=== PATIENT | female | born 1955 | race African-American/Black ===

== ENCOUNTER 2017-06-02 10:31 | Emergency (ER) | payer MEDICAID, OTHER ==
[~2017-06-02] VITALS: Ht 167.6 cm; Wt 79.5 kg
[2017-06-02 13:39] LABS: BASOPHILS % 0.7 % (0.0-2.0); EOSINOPHILS % 1.5 % (0.0-5.0); HEMATOCRIT. 35.3 % (36.0-48.0); HEMOGLOBIN. 11.8 g/dL (12.0-16.0); LYMPHOCYTES % 39.2 % (20.0-50.0); MEAN CORPUSCULAR HEMOGLOBIN 28.6 pg (28.0-32.0); MEAN CORPUSCULAR VOLUME 85.4 fL (81.0-99.0); MEAN PLATELET VOLUME 8.9 fl (7.4-10.4); MONOCYTES % 7.4 % (2.0-8.0); NEUTROPHILS % 51.2 % (40.0-76.0); PLATELET 185 x1000/uL (130-400); RED BLOOD CELL COUNT 4.13 mill/uL (4.2-5.4)
[2017-06-02 13:49] LABS: CHLORIDE 111 mEq/L (98-107)
[2017-06-02] MEDS ORDERED: POTASSIUM CHLORIDE 20MEQ TABLET SR PO ONE (14:30)
[2017-06-02 15:30] VITALS: BP 142/76
== END 2017-06-02 16:08 | disposition home or self-care (01) ==
LOC: ER 10:31
DX: G40.909 Epilepsy, unspecified, not intractable, without status epilepticus (principal); E11.9 Type 2 diabetes mellitus without complications; I10 Essential (primary) hypertension; Z98.890 Other specified postprocedural states
CPT/HCPCS: 36415; 70450; 80053; 85025; 99285; Z7610

== ENCOUNTER 2018-07-07 13:53 | Emergency (ER) | payer OTHER ==
[~2018-07-07] VITALS: Ht 167.6 cm; Wt 100.0 kg
[2018-07-07 15:01] LABS: BASOPHILS % 0.7 % (0.0-2.0); HEMATOCRIT. 34.2 % (36.0-48.0); LYMPHOCYTES % 27.8 % (20.0-50.0); MEAN CORPUSCULAR HEMOGLOBIN 28.1 pg (28.0-32.0); MEAN CORPUSCULAR VOLUME 87.1 fL (81.0-99.0); MEAN PLATELET VOLUME 8.4 fl (7.4-10.4); MONOCYTES % 6.2 % (2.0-8.0); NEUTROPHILS % 63.3 % (40.0-76.0); PLATELET 193 x1000/uL (130-400); RED BLOOD CELL COUNT 3.93 mill/uL (4.2-5.4); RED CELL DISTRIBUTION WIDTH 14.4 % (11.6-14.6)
[2018-07-07 15:08] LABS: CHLORIDE 112 mEq/L (98-107)
[2018-07-07 15:09] LABS: PROTHROMBIN TIME 10.2 sec (9.6-11.0)
[2018-07-07 15:37] LABS: CLARITY URINE CLOUDY (CLEAR); COLOR URINE YELLOW (YELLOW); KETONES URINE NEGATIVE (NEGATIVE); LEUKOCYTE ESTERASE URINE 2+ (NEGATIVE); NITRITE URINE POSITIVE (NEGATIVE); OCCULT BLOOD URINE NEGATIVE (NEGATIVE); PROTEIN URINE NEGATIVE (NEGATIVE); SPECIFIC GRAVITY URINE 1.018 (1.005-1.030); UROBILINOGEN URINE 0.2 E.U./dL (0.2-1.0)
[2018-07-07] MEDS ORDERED: CEFTRIAXONE 1 G PREMIX 50 ML IV NR (16:30)
[2018-07-07 18:27] VITALS: BP 152/86
== END 2018-07-07 18:33 | disposition home or self-care (01) ==
LOC: ER 14:14
DX: R56.9 Unspecified convulsions (principal); I10 Essential (primary) hypertension
CPT/HCPCS: 36415; 80053; 81003; 85025; 85610; 96365; 99283; J0696; Z7610

== ENCOUNTER 2020-07-31 19:14 | Inpatient (IN) | payer OTHER ==
[~2020-07-31] VITALS: Ht 167.6 cm; Wt 99.4 kg
[2020-07-31] MEDS ORDERED: DILTIAZEM HCL 5MG/ML 5ML VIAL IV ONE ×2 (19:30→19:45)
[2020-07-31] MEDS ORDERED: IPRATROPIUM BROMIDE (0.02%) 0.5MG/2.5ML NEB HHN ONE (19:30)
[2020-07-31] MEDS ORDERED: METHYLPREDNISOLONE SOD SUCC 125 MG/2 ML VIAL IV ONE (19:30)
[2020-07-31 19:49] LABS: BASOPHILS % 0.7 % (0.0-2.0); EOSINOPHILS % 2.4 % (0.0-5.0); HEMATOCRIT. 35.1 % (36.0-48.0); HEMOGLOBIN. 11.4 g/dL (12.0-16.0); LYMPHOCYTES % 40.6 % (20.0-50.0); MEAN CORPUSCULAR HEMOGLOBIN 29.1 pg (28.0-32.0); MEAN CORPUSCULAR VOLUME 89.2 fL (81.0-99.0); MEAN PLATELET VOLUME 9.5 fl (7.4-10.4); MONOCYTES % 7.6 % (2.0-8.0); NEUTROPHILS % 48.7 % (40.0-76.0); PLATELET 165 x1000/uL (130-400); RED BLOOD CELL COUNT 3.93 mill/uL (4.2-5.4); RED CELL DISTRIBUTION WIDTH 14.6 % (11.6-14.6)
[2020-07-31] MEDS ORDERED: DILTIAZEM HCL 125 MG in DEXT 5% WATER 100 ML IV ONE ×2 (20:00→20:15)
[2020-07-31] MEDS ORDERED: ASPIRIN 325MG EC TABLET PO ONE (20:00)
[2020-07-31 20:27] LABS: PHOSPHORUS 4.1 mg/dL (2.5-4.9)
[2020-07-31 20:31] LABS: T4 FREE 1.02 ng/dL (0.76-1.46)
[2020-07-31 20:33] LABS: INR 1.1; PARTIAL THROMBOPLASTIN TIME 25.3 sec (23.4-31.0); PROTHROMBIN TIME 11.9 sec (9.6-11.0)
[2020-07-31 20:38] LABS: CHLORIDE 117 mEq/L (98-107)
[2020-07-31] MEDS ORDERED: NITROGLYCERIN 0.4MG TABLET SL SL ONE (21:45)
[2020-07-31] MEDS ORDERED: AZITHROMYCIN 500 MG in DEXT 5% WATER 250 ML IV SCH (21:45)
[2020-07-31] MEDS ORDERED: NITROGLYCERIN 0.4MG/HR PATCH TOP ONE (21:45)
[2020-07-31] MEDS ORDERED: CEFTRIAXONE 1 G PREMIX 50 ML IV ONE (21:45)
[2020-07-31] MEDS ORDERED: KCL 10MEQ/50ML PREMIX 50 ML IV ONE (23:00)
[2020-08-01] VITALS (74 sets, daily range): BP systolic 69–166; BP diastolic 36–117
[2020-08-01] MEDS ORDERED: DILTIAZEM HCL 125 MG in DEXT 5% WATER 100 ML IV PRN (05:00)
[2020-08-01 05:43] LABS: BASOPHILS % 0.1 % (0.0-2.0); HEMATOCRIT. 31.7 % (36.0-48.0); HEMOGLOBIN. 10.3 g/dL (12.0-16.0); LYMPHOCYTES % 9.2 % (20.0-50.0); MEAN CORPUSCULAR HEMOGLOBIN 28.7 pg (28.0-32.0); MEAN CORPUSCULAR VOLUME 88.6 fL (81.0-99.0); MEAN PLATELET VOLUME 9.7 fl (7.4-10.4); MONOCYTES % 1.4 % (2.0-8.0); NEUTROPHILS % 89.3 % (40.0-76.0); PLATELET 141 x1000/uL (130-400); RED BLOOD CELL COUNT 3.58 mill/uL (4.2-5.4); RED CELL DISTRIBUTION WIDTH 14.6 % (11.6-14.6)
[2020-08-01 05:50] LABS: CHLORIDE 114 mEq/L (98-107)
[2020-08-01] MEDS ORDERED: FUROSEMIDE 40MG/4ML VIAL IVP SCH (09:00)
[2020-08-01] MEDS ORDERED: METOPROLOL TARTRATE 50MG TABLET PO SCH (09:00)
[2020-08-01] MEDS: APIXABAN 5 MG TABLET PO SCH ×2 (09:36→20:34)
[2020-08-01] MEDS: FAMOTIDINE 20MG TABLET PO SCH ×2 (09:36→20:35)
[2020-08-01] MEDS ORDERED: METOPROLOL TARTRATE 25MG TABLET PO NR (10:15)
[2020-08-01] MEDS ORDERED: DEXTROSE 50% WATER 50ML SYRINGE IV PRN (10:30)
[2020-08-01 10:49] LABS: CLARITY URINE CLEAR (CLEAR); COLOR URINE YELLOW (YELLOW); KETONES URINE NEGATIVE (NEGATIVE); LEUKOCYTE ESTERASE URINE NEGATIVE (NEGATIVE); NITRITE URINE NEGATIVE (NEGATIVE); OCCULT BLOOD URINE NEGATIVE (NEGATIVE); PROTEIN URINE TRACE (NEGATIVE); SPECIFIC GRAVITY URINE 1.009 (1.005-1.030); UROBILINOGEN URINE 0.2 E.U./dL (0.2-1.0)
[2020-08-01] MEDS: LEVETIRACETAM 500MG TABLET PO SCH ×2 (11:28→20:35)
[2020-08-01] MEDS: SPIRONOLACTONE 25MG TABLET PO SCH (11:28)
[2020-08-01] MEDS: BLOOD SUGAR DIAGNOSTIC STRIP TEST SCH ×3 (13:10→20:35)
[2020-08-01] MEDS: INSULIN LISPRO 100 UNITS/ML SUBCUT SCH ×3 (13:14→20:34)
[2020-08-01] MEDS: METFORMIN HCL 500MG TABLET PO SCH (17:54)
[2020-08-01] MEDS: FUROSEMIDE 40MG/4ML VIAL IVP SCH (17:55)
[2020-08-01] MEDS: METOPROLOL TARTRATE 50MG TABLET PO SCH (20:35)
[2020-08-02] VITALS (37 sets, daily range): BP systolic 100–143; BP diastolic 56–110
[2020-08-02] MEDS ORDERED: HYDRALAZINE 20MG/ML VIAL IV SCH (02:45)
[2020-08-02 05:22] LABS: BASOPHILS % 0.3 % (0.0-2.0); EOSINOPHILS % 0.7 % (0.0-5.0); HEMATOCRIT. 32.9 % (36.0-48.0); HEMOGLOBIN. 10.5 g/dL (12.0-16.0); LYMPHOCYTES % 25.3 % (20.0-50.0); MEAN CORPUSCULAR HEMOGLOBIN 28.5 pg (28.0-32.0); MEAN CORPUSCULAR VOLUME 88.9 fL (81.0-99.0); MEAN PLATELET VOLUME 9.1 fl (7.4-10.4); MONOCYTES % 7.6 % (2.0-8.0); NEUTROPHILS % 66.1 % (40.0-76.0); PLATELET 154 x1000/uL (130-400); RED CELL DISTRIBUTION WIDTH 14.3 % (11.6-14.6)
[2020-08-02] MEDS: HYDRALAZINE 20MG/ML VIAL IV PRN (06:07)
[2020-08-02] MEDS: INSULIN LISPRO 100 UNITS/ML SUBCUT SCH ×4 (08:20→20:32)
[2020-08-02] MEDS: APIXABAN 5 MG TABLET PO SCH ×2 (08:25→20:31)
[2020-08-02] MEDS: SPIRONOLACTONE 25MG TABLET PO SCH (08:25)
[2020-08-02] MEDS: FUROSEMIDE 40MG/4ML VIAL IVP SCH (08:25)
[2020-08-02] MEDS: METFORMIN HCL 500MG TABLET PO SCH ×2 (08:25→17:38)
[2020-08-02] MEDS: FAMOTIDINE 20MG TABLET PO SCH ×2 (08:25→20:31)
[2020-08-02] MEDS: LEVETIRACETAM 500MG TABLET PO SCH ×2 (08:25→20:31)
[2020-08-02] MEDS: METOPROLOL TARTRATE 50MG TABLET PO SCH ×2 (08:26→20:32)
[2020-08-02] MEDS: BLOOD SUGAR DIAGNOSTIC STRIP TEST SCH ×4 (08:43→20:32)
[2020-08-02] MEDS ORDERED: METOPROLOL TARTRATE 5MG/5ML VIAL IV PRN (09:45)
[2020-08-02] MEDS ORDERED: DIGOXIN 500MCG/2ML AMP IV NR (16:30)
[2020-08-03] VITALS (21 sets, daily range): BP systolic 120–155; BP diastolic 67–102
[2020-08-03 05:40] LABS: BASOPHILS % 0.4 % (0.0-2.0); EOSINOPHILS % 2.6 % (0.0-5.0); HEMATOCRIT. 34.8 % (36.0-48.0); HEMOGLOBIN. 11.3 g/dL (12.0-16.0); LYMPHOCYTES % 32.7 % (20.0-50.0); MEAN CORPUSCULAR HEMOGLOBIN 28.7 pg (28.0-32.0); MEAN CORPUSCULAR VOLUME 88.4 fL (81.0-99.0); MEAN PLATELET VOLUME 9.3 fl (7.4-10.4); MONOCYTES % 8.6 % (2.0-8.0); NEUTROPHILS % 55.7 % (40.0-76.0); PLATELET 169 x1000/uL (130-400); RED BLOOD CELL COUNT 3.93 mill/uL (4.2-5.4); RED CELL DISTRIBUTION WIDTH 14.9 % (11.6-14.6)
[2020-08-03 05:47] LABS: CHLORIDE 116 mEq/L (98-107)
[2020-08-03] MEDS: BLOOD SUGAR DIAGNOSTIC STRIP TEST SCH ×4 (06:50→21:00)
[2020-08-03] MEDS: INSULIN LISPRO 100 UNITS/ML SUBCUT SCH ×4 (07:20→22:24)
[2020-08-03] MEDS: METOPROLOL TARTRATE 50MG TABLET PO SCH ×2 (07:56→22:22)
[2020-08-03] MEDS: APIXABAN 5 MG TABLET PO SCH ×2 (07:56→22:20)
[2020-08-03] MEDS: FAMOTIDINE 20MG TABLET PO SCH ×2 (07:56→22:20)
[2020-08-03] MEDS: SPIRONOLACTONE 25MG TABLET PO SCH (07:57)
[2020-08-03] MEDS: METFORMIN HCL 500MG TABLET PO SCH ×2 (07:57→17:34)
[2020-08-03] MEDS: LEVETIRACETAM 500MG TABLET PO SCH ×2 (07:59→22:20)
[2020-08-03] MEDS ORDERED: FUROSEMIDE 40MG/4ML VIAL IVP SCH (09:00)
[2020-08-03] MEDS ORDERED: ACETAMINOPHEN 325MG TABLET PO PRN (10:30)
[2020-08-03] MEDS: LISINOPRIL 5MG TABLET PO SCH (14:31)
[2020-08-03] MEDS: HYDRALAZINE 20MG/ML VIAL IV PRN (15:46)
[2020-08-03] MEDS: DIGOXIN 125MCG TABLET PO SCH (17:34)
[2020-08-03] MEDS ORDERED: METOPROLOL TARTRATE 5MG/5ML VIAL IV NR (18:00)
[2020-08-04] VITALS (12 sets, daily range): BP systolic 124–167; BP diastolic 64–90
[2020-08-04] MEDS: BLOOD SUGAR DIAGNOSTIC STRIP TEST SCH ×4 (06:20→21:32)
[2020-08-04] MEDS: INSULIN LISPRO 100 UNITS/ML SUBCUT SCH ×4 (06:49→21:00)
[2020-08-04] MEDS: METFORMIN HCL 500MG TABLET PO SCH ×2 (07:20→17:01)
[2020-08-04] MEDS: FUROSEMIDE 40MG TABLET PO SCH (08:59)
[2020-08-04] MEDS: LEVETIRACETAM 500MG TABLET PO SCH ×2 (08:59→21:39)
[2020-08-04] MEDS: APIXABAN 5 MG TABLET PO SCH ×2 (08:59→21:39)
[2020-08-04] MEDS: LISINOPRIL 5MG TABLET PO SCH (08:59)
[2020-08-04] MEDS: METOPROLOL TARTRATE 50MG TABLET PO SCH ×2 (08:59→21:39)
[2020-08-04] MEDS: FAMOTIDINE 20MG TABLET PO SCH ×2 (08:59→21:39)
[2020-08-04] MEDS: SPIRONOLACTONE 25MG TABLET PO SCH (09:00)
[2020-08-04] MEDS ORDERED: MIDAZOLAM HCL 5 MG/5 ML VIAL ONE (10:26)
[2020-08-04] MEDS ORDERED: FENTANYL CITRATE/PF 50MCG/ML 5ML VIAL ONE (10:26)
[2020-08-04] MEDS ORDERED: TETRACAINE/BENZOCAINE/BUTAMBEN 20 GM SPRAY MM ONE (10:27)
[2020-08-04] MEDS ORDERED: LIDOCAINE HCL 2% JELLY 5ML ONE (10:27)
[2020-08-04] MEDS ORDERED: AMIODARONE HCL 150 MG in DEXT 5% WATER 100 ML IV NR (13:00)
[2020-08-04] MEDS: AMIODARONE HCL 900 MG in DEXT 5% WATER 482 ML IV SCH (13:26)
[2020-08-04] MEDS: DIGOXIN 125MCG TABLET PO SCH (17:01)
[2020-08-05] VITALS (11 sets, daily range): BP systolic 122–158; BP diastolic 46–103
[2020-08-05 06:37] LABS: CHLORIDE 109 mEq/L (98-107)
[2020-08-05] MEDS: BLOOD SUGAR DIAGNOSTIC STRIP TEST SCH ×4 (06:43→20:43)
[2020-08-05] MEDS: INSULIN LISPRO 100 UNITS/ML SUBCUT SCH ×4 (07:20→20:43)
[2020-08-05] MEDS: FUROSEMIDE 40MG TABLET PO SCH (08:32)
[2020-08-05] MEDS: METOPROLOL TARTRATE 50MG TABLET PO SCH ×2 (08:32→20:49)
[2020-08-05] MEDS: APIXABAN 5 MG TABLET PO SCH ×2 (08:32→20:49)
[2020-08-05] MEDS: SPIRONOLACTONE 25MG TABLET PO SCH (08:32)
[2020-08-05] MEDS: FAMOTIDINE 20MG TABLET PO SCH ×2 (08:32→20:50)
[2020-08-05] MEDS: LISINOPRIL 5MG TABLET PO SCH (08:32)
[2020-08-05] MEDS: METFORMIN HCL 500MG TABLET PO SCH ×2 (08:33→17:24)
[2020-08-05] MEDS: LEVETIRACETAM 500MG TABLET PO SCH ×2 (08:33→20:50)
[2020-08-05] MEDS: AMIODARONE HCL 900 MG in DEXT 5% WATER 482 ML IV SCH (15:03)
[2020-08-05] MEDS: DIGOXIN 125MCG TABLET PO SCH (17:24)
[2020-08-05] MEDS: AMIODARONE HCL 200 MG TABLET PO SCH (20:50)
[2020-08-06] VITALS (11 sets, daily range): BP systolic 107–145; BP diastolic 67–94
[2020-08-06] MEDS: BLOOD SUGAR DIAGNOSTIC STRIP TEST SCH ×4 (06:50→20:55)
[2020-08-06] MEDS: INSULIN LISPRO 100 UNITS/ML SUBCUT SCH ×4 (06:50→20:55)
[2020-08-06] MEDS: LEVETIRACETAM 500MG TABLET PO SCH ×2 (08:25→21:06)
[2020-08-06] MEDS: FUROSEMIDE 40MG TABLET PO SCH (08:25)
[2020-08-06] MEDS: FAMOTIDINE 20MG TABLET PO SCH ×2 (08:25→21:07)
[2020-08-06] MEDS: LISINOPRIL 5MG TABLET PO SCH (08:26)
[2020-08-06] MEDS: AMIODARONE HCL 200 MG TABLET PO SCH ×2 (08:26→21:07)
[2020-08-06] MEDS: METFORMIN HCL 500MG TABLET PO SCH ×2 (08:26→17:37)
[2020-08-06] MEDS: SPIRONOLACTONE 25MG TABLET PO SCH (08:26)
[2020-08-06] MEDS: METOPROLOL TARTRATE 50MG TABLET PO SCH ×2 (08:26→21:07)
[2020-08-06] MEDS: APIXABAN 5 MG TABLET PO SCH ×2 (08:26→21:06)
[2020-08-06] MEDS: DIGOXIN 125MCG TABLET PO SCH (17:37)
[2020-08-07] VITALS (9 sets, daily range): BP systolic 108–147; BP diastolic 59–84
[2020-08-07] MEDS: BLOOD SUGAR DIAGNOSTIC STRIP TEST SCH ×2 (06:09→12:02)
[2020-08-07] MEDS: INSULIN LISPRO 100 UNITS/ML SUBCUT SCH ×2 (07:20→12:02)
[2020-08-07] MEDS: APIXABAN 5 MG TABLET PO SCH (07:57)
[2020-08-07] MEDS: SPIRONOLACTONE 25MG TABLET PO SCH (07:57)
[2020-08-07] MEDS: FAMOTIDINE 20MG TABLET PO SCH (07:57)
[2020-08-07] MEDS: LISINOPRIL 5MG TABLET PO SCH (07:57)
[2020-08-07] MEDS: FUROSEMIDE 40MG TABLET PO SCH (07:58)
[2020-08-07] MEDS: METFORMIN HCL 500MG TABLET PO SCH (07:58)
[2020-08-07] MEDS: AMIODARONE HCL 200 MG TABLET PO SCH (07:58)
[2020-08-07] MEDS: LEVETIRACETAM 500MG TABLET PO SCH (07:58)
[2020-08-07] MEDS: METOPROLOL TARTRATE 50MG TABLET PO SCH (07:58)
== END 2020-08-07 14:50 | disposition home health service (06) | DRG 133 ==
LOC: ER 19:14 → CVICU 23:07 → CANRESERV 23:33 → ENRESERV 23:33 → 3WST 08-03 06:34
PROVIDERS: ADMIT Internal Medicine; ATTEND Internal Medicine
PROC: 5A2204Z Restoration of Cardiac Rhythm, Single (ICD-10-PCS; principal; 2020-07-27)
DX: J96.01 Acute respiratory failure with hypoxia (principal); I50.41 Acute combined systolic (congestive) and diastolic (congestive) heart failure; E87.8 Other disorders of electrolyte and fluid balance, not elsewhere classified; I42.9 Cardiomyopathy, unspecified; I48.19 Other persistent atrial fibrillation; D64.9 Anemia, unspecified; E11.9 Type 2 diabetes mellitus without complications; E66.9 Obesity, unspecified; I11.0 Hypertensive heart disease with heart failure; G40.909 Epilepsy, unspecified, not intractable, without status epilepticus; E87.6 Hypokalemia; R74.01 Elevation of levels of liver transaminase levels; R00.0 Tachycardia, unspecified; I34.0 Nonrheumatic mitral (valve) insufficiency; Z20.822 Contact with and (suspected) exposure to COVID-19; I50.43 Acute on chronic combined systolic (congestive) and diastolic (congestive) heart failure; Z79.01 Long term (current) use of anticoagulants; Z68.35 Body mass index [BMI] 35.0-35.9, adult
CPT/HCPCS: 36415; 71045; 80048; 80053; 81003; 82962; 83036; 83735; 83880; 84100; 84439; 84443; 84484; 85025; 92960; 93005; 93306; 93312; 93970; 94640; 97162; 97530; 99291; C9803; J0282; J0360; J0456; J0696; J1160; J1815; J1940; J2250; J2930; J3010; J3480; J3490; J7060; U0003; U0005